=== PATIENT | male | born 1995 | race Caucasian/White ===

== ENCOUNTER 2021-06-18 08:25 | Emergency (ER) | payer BC, OTHER ==
[2021-06-18] MEDS ORDERED: Ketorolac 30 MG/ML SDV IM ONE (08:57)
[2021-06-18] MEDS ORDERED: Cyclobenzaprine 5 MG Tab PO STA (08:57)
--- NOTE | 2021-06-18 09:00 | EDM.PDOC ---
ED HPI GENERAL MEDICAL PROBLEM - General Chief Complaint: Back Pain or Injury Stated Complaint: BACK PAIN Time Seen by Provider: 06/18/21 08:57 Source of Information: Reports: Patient History Limitations: Reports: No Limitations - History of Present Illness INITIAL COMMENTS - FREE TEXT/NARRATIVE: Patient is a 26-year-old male who presents today for low back pain. Patient states that he was lifting something heavy at work when the pain started. He states the pain is made worse when he tries to bend over. Still able to ambulate has no urinary symptoms and no saddle anesthesia. He denies any direct blows or injuries to his back. He has not tried any medication for the pain at home. Patient also states the pain does not radiate. Back Pain Score (Numeric/FACES): 6 - Related Data Allergies Allergy/AdvReac Type Severity Reaction Status Date / Time No Known Allergies Allergy Verified 07/08/14 13:47 Home Meds: Home Meds . [No Known Home Meds] 07/08/14 [History] Social & Family History - Caffeine Use Caffeine Use: Reports: None - Recreational Drug Use Recreational Drug Use: No ED ROS GENERAL - Review of Systems Review Of Systems: See Below Constitutional: Reports: No Symptoms HEENT: Reports: No Symptoms Respiratory: Reports: No Symptoms Cardiovascular: Reports: No Symptoms Endocrine: Reports: No Symptoms GI/Abdominal: Reports: No Symptoms : Reports: No Symptoms Musculoskeletal: Reports: Back Pain Skin: Reports: No Symptoms Neurological: Reports: No Symptoms Psychiatric: Reports: No Symptoms Hematologic/Lymphatic: Reports: No Symptoms Immunologic: Reports: No Symptoms ED EXAM,LOWER BACK PAIN/INJURY - Physical Exam Exam: See Below Exam Limited By: No Limitations General Appearance: Alert, WD/WN, No Apparent Distress Eye Exam: Bilateral Eye: EOMI Head: Atraumatic Neck: Normal Inspection Respiratory/Chest: No Respiratory Distress Cardiovascular: Normal Peripheral Pulses GI/Abdominal: Normal Bowel Sounds, Soft, Non-Tender Back Exam: Normal Inspection, Full Range of Motion, Paraspinal Tenderness. No: Vertebral Tenderness Extremities: Normal Inspection, Normal Range of Motion Neurological: Alert, Normal Gait, Oriented x 3 Course - Vital Signs Last Recorded V/S: Last Vital Signs Temp 98.7 F 06/18/21 08:41 Pulse 75 06/18/21 08:41 Resp 20 06/18/21 08:41 BP 127/66 06/18/21 08:41 Pulse Ox 96 06/18/21 08:41 - Orders/Labs/Meds Meds: Medications Discontinued Medications Generic Name Dose Route Start Last Admin Trade Name David PRMar Reason Stop Dose Admin Cyclobenzaprine HCl 5 mg 06/18/21 08:57 06/18/21 09:24 Cyclobenzaprine 5 Mg Tab PO 06/18/21 08:58 5 mg NOW STA Administration Ketorolac Tromethamine 30 mg 06/18/21 08:57 06/18/21 09:07 Ketorolac 30 Mg/Ml Sdv IM 06/18/21 08:58 30 mg ONETIME ONE Administration - Re-Assessments/Exams Free Text/Narrative Re-Assessment/Exam: 06/18/21 09:00 Patient is a 26-year-old male presents today for low back pain that started yesterday while at work. On exam patient has no spinal tenderness pain is mostly over the paraspinal muscles. Discussed patient about the need of holding off on x-ray patient is okay with the plan. We will try to pain control and reassess. 06/18/21 10:18 Patient still has slight pain but states is manageable will be discharged. Departure - Departure Time of Disposition: 10:18 Disposition: Home, Self-Care 01 Condition: Good Clinical Impression: Lumbago - Discharge Information *PRESCRIPTION DRUG MONITORING PROGRAM REVIEWED*: Not Applicable *COPY OF PRESCRIPTION DRUG MONITORING REPORT IN PATIENT NII: Not Applicable Instructions: Acute Back Pain, Adult Referrals: PCP,None [Primary Care Provider] - Forms: ED Department Discharge Additional Instructions: You are seen today for pain to your lower back. You did not have any direct blows or injuries to the area. This is likely muscle skeletal pain. We recommend continue to apply heat take Motrin as needed and if you have to follow-up with h er primary care physician. If you have any other concerning signs or symptoms please read return to the ED. The following information is given to patients seen in the emergency department who are being discharged to home. This information is to outline your options for follow-up care. We provide all patients seen in our emergency department with a follow-up referral. The need for follow-up, as well as the timing and circumstances, are variable depending upon the specifics of your emergency department visit. If you don't have a primary care physician on staff, we will provide you with a referral. We always advise you to contact your personal physician following an emergency department visit to inform them of the circumstance of the visit and for follow-up with them and/or the need for any referrals to a consulting specialist. The emergency department will also refer you to a specialist when appropriate. This referral assures that you have the opportunity for follow-up care with a s pecialist. All of these measure are taken in an effort to provide you with optimal care, which includes your follow-up. Under all circumstances we always encourage you to contact your private physici an who remains a resource for coordinating your care. When calling for follow-up care, please make the office aware that this follow-up is from your recent emergency room visit. If for any reason you are refused follow-up, please contact the [facility] Emergency Department at and asked to speak to the emergency department charge nurse. Please follow up with your primary care physician. If you do not have a primary care physician, see below: [facility] [address] [place] [id number] [facility] [address] [place] [id number] Sepsis Event Note (ED) - Evaluation Sepsis Screening Result: No Definite Risk - Focused Exam Vital Signs: Vital Signs Temp Pulse Resp BP Pulse Ox 06/18/21 08:41 98.7 F 75 20 127/66 96
== END 2021-06-18 10:30 | disposition home or self-care (01) ==
LOC: MW.ED 08:25
DX: M54.50 Low back pain, unspecified (principal)
CPT/HCPCS: 96372; 99283; A9270; J1885